=== PATIENT | female | born 1975 | race Caucasian/White ===

== ENCOUNTER 2018-06-05 10:21 | Emergency (ER) | payer MEDICAID ==
[2018-06-05] MEDS ORDERED: Sodium Chloride 0.9% 2.5 ML Syringe FLUSH PRN (10:28)
[2018-06-05] MEDS ORDERED: Sodium Chloride 0.9% 10 ML Syringe FLUSH PRN (10:28)
--- NOTE | 2018-06-05 10:45 | EDM.PDOC ---
ED HPI GENERAL MEDICAL PROBLEM - General Chief Complaint: Cardiovascular Problem Stated Complaint: UNK Time Seen by Provider: 06/05/18 10:34 - History of Present Illness INITIAL COMMENTS - FREE TEXT/NARRATIVE: HISTORY AND PHYSICAL: History of present illness: Patient's 42-year-old white female with history of chronic intermittent dizziness and presents with a concern of dizziness she does qualify this is somewhat different she has been worked up for this and there's been no definitive diagnosis given to this. She denies associated chest pain nausea vomiting fever chills Review of systems: As per history of present illness and below otherwise all systems reviewed and negative. Past medical history: As per history of present illness and as reviewed below otherwise noncontributory. Surgical history: As per history of present illness and as reviewed below otherwise noncontributory. Social history: No reported history of drug or alcohol abuse. Family history: As per history of present illness and as reviewed below otherwise noncontributory. Physical exam: HEENT: Atraumatic, normocephalic, pupils reactive, negative for conjunctival pallor or scleral icterus, mucous membranes moist, throat clear, neck supple, nontender, trachea midline. Lungs: Clear to auscultation, breath sounds equal bilaterally, chest nontender. Heart: S1S2, regular, negative for clicks, rubs, or JVD. Abdomen: Soft, nondistended, nontender. Negative for masses or hepatosplenomegaly. Negative for costovertebral tenderness. Pelvis: Stable nontender. Genitourinary: Deferred. Rectal: Deferred. Extremities: Right knee with mild tenderness to palpation grossly stable neurovascular exam unremarkable. Neuro: Awake, alert, oriented. Cranial nerves II through XII unremarkable. Motor and sensory grossly unremarkable exam limited but nonfocal Diagnostics: CBC CMP troponin PT/INR chest x-ray EKG CT brain orthostatic vital signs x-ray right knee Therapeutics: Saline 1 L bolus Impression: #1 chronic dizziness with acute exacerbation #2 history of breast cancer #3 history of colon cancer Definitive disposition and diagnosis as appropriate pending reevaluation and review of above. right knee Pain Score (Numeric/FACES): 7 heada Pain Score (Numeric/FACES): 10 - Related Data Allergies Allergy/AdvReac Type Severity Reaction Status Date / Time Iodine and Iodide Containing Allergy Airway Verified 06/05/18 10:27 Produc Tightness morphine Allergy Hives Verified 06/05/18 10:27 shrimp Allergy Airway Verified 06/05/18 10:27 Tightness sumatriptan [From Imitrex] Allergy Swelling Verified 06/05/18 10:27 Contrast Dye Allergy Airway Uncoded 06/05/18 10:27 Tightness Home Meds: Home Meds Acetaminophen 650 mg PO Q6H PRN 06/05/18 [History] Acetaminophen/oxyCODONE [Percocet 325-5 MG] 1 tab PO Q8H PRN 06/05/18 [History] Acyclovir [Zovirax 5% Oint] 1 applic TP ASDIRECTED PRN 06/05/18 [History] Amitriptyline [Elavil] 50 mg PO BEDTIME 06/05/18 [History] Biotin 1,000 mcg PO DAILY 06/05/18 [History] Bisacodyl [Dulcolax] 10 mg PO DAILY PRN 06/05/18 [History] Calcium Carbonate/Vitamin D3 [Calcium 600-Vit D3 800 Caplet] 1 tab PO BID [History] Capecitabine 2,500 mg PO BID 06/05/18 [History] Clobetasol Propionate [Temovate Cream] 1 applic TP BID 06/05/18 [History] Cyanocobalamin (Vitamin B-12) [B-12] 5,000 mcg SL DAILY 06/05/18 [History] Cyclobenzaprine [Flexeril] 10 mg PO TID PRN 06/05/18 [History] DULoxetine [Cymbalta] 60 mg PO DAILY 06/05/18 [History] Dexamethasone 8 mg PO DAILY 06/05/18 [History] Dextromethorphan HBr [Tussin Cough] 15 mg PO Q4H 06/05/18 [History] Diclofenac Sodium [Voltaren 1% Gel] 1 applic TP QID 06/05/18 [History] Docusate Sodium [Colace] 100 mg PO BID 06/05/18 [History] Exemestane 25 mg PO DAILY 06/05/18 [History] Furosemide 10 mg PO DAILY 06/05/18 [History] Gabapentin [Neurontin] 900 mg PO TID 06/05/18 [History] Lidocaine 2% [Xylocaine 2% Jelly] 1 applic TP BID PRN 06/05/18 [History] Loperamide [Imodium] 2 mg PO ASDIRECTED PRN MDD 16 mg 06/05/18 [History] Magnesium Oxide 250 mg PO BID 06/05/18 [History] Multivitamin/Iron/Folic Acid [Centrum Adults Tablet] 1 tab PO BEDTIME 06/05/18 [ History] Naratriptan HCl 2.5 mg PO ASDIRECTED PRN 06/05/18 [History] Nystatin 1 dose PO BID 06/05/18 [History] Omeprazole 20 mg PO BIDAC 06/05/18 [History] Pregabalin [Lyrica] 75 mg PO TID 06/05/18 [History] Pregabalin [Lyrica] 150 mg PO BID 06/05/18 [History] Prochlorperazine [Compazine] 10 mg PO QID PRN 06/05/18 [History] Promethazine [Phenergan] 25 mg PO Q6H PRN 06/05/18 [History] Propranolol HCl [Inderal LA] 160 mg PO BEDTIME 06/05/18 [History] Topiramate 150 mg PO ASDIRECTED PRN 06/05/18 [History] buPROPion HCl [Wellbutrin Sr] 150 mg PO BID 06/05/18 [History] Past Medical History HEENT History: Reports: Impaired Vision, Other (See Below) Other HEENT History: wears glasses, Cardiovascular History: Reports: None Respiratory History: Reports: Pneumonia, Recurrent Gastrointestinal History: Reports: GERD Genitourinary History: Reports: None DIRECT MARKETING COORDINATOR History: Reports: Musculoskeletal History: Reports: None Neurological History: Reports: Migraines Psychiatric History: Reports: None Endocrine/Metabolic History: Reports: None Hematologic History: Reports: None Immunologic History: Reports: None Oncologic (Cancer) History: Reports: Breast, Colon Dermatologic History: Reports: None - Past Surgical History Head Surgeries/Procedures: Reports: None HEENT Surgical History: Reports: Other (See Below) Other HEENT Surgeries/Procedures: esophgeal dilation Cardiovascular Surgical History: Reports: None Respiratory Surgical History: Reports: None GI Surgical History: Reports: Bariatric Procedure, Cholecystectomy, Hernia, Abdominal Female Surgical History: Reports: Section Endocrine Surgical History: Reports: None Neurological Surgical History: Reports: None Musculoskeletal Surgical History: Reports: None Oncologic Surgical History: Reports: Mastectomy, Other (See Below) Other Oncologic Surgeries/Procedures: double mastectomy, breast reconstruction Dermatological Surgical History: Reports: None Social & Family History - Family History Family Medical History: Noncontributory - Tobacco Use Smoking Status *Q: Never Smoker Second Hand Smoke Exposure: No - Caffeine Use Caffeine Use: Reports: Soda - Recreational Drug Use Recreational Drug Use: No ED ROS GENERAL - Review of Systems Review Of Systems: ROS reveals no pertinent complaints other than HPI. ED EXAM, GENERAL - Physical Exam Exam: See Below (See dictation) Course - Vital Signs Last Recorded V/S: Last Vital Signs Temp 36.0 C 06/05/18 10:23 Pulse 68 06/05/18 10:23 Resp 16 06/05/18 10:23 BP 123/79 06/05/18 10:23 Pulse Ox 96 06/05/18 10:23 - Orders/Labs/Meds Orders: Active Orders 24 hr Category Date Time Status EKG Documentation Completion [RC] STAT Care 06/05/18 10:28 Active Orthostatic Vital Signs [RC] ASDIRECTED Care 06/05/18 10:28 Active Knee 3V Rt [CR] Stat Exams 06/05/18 12:40 Ordered Sodium Chloride 0.9% [Saline Flush] Med 06/05/18 10:28 Active 10 ml FLUSH ASDIRECTED PRN Sodium Chloride 0.9% [Saline Flush] Med 06/05/18 10:28 Active 2.5 ml FLUSH ASDIRECTED PRN Saline Lock Insert [OM.PC] Stat Oth 06/05/18 10:28 Ordered Medication Orders Sodium Chloride (Saline Flush) 10 ml FLUSH ASDIRECTED PRN PRN Reason: Keep Vein Open Sodium Chloride (Saline Flush) 2.5 ml FLUSH ASDIRECTED PRN PRN Reason: Keep Vein Open Labs: Laboratory Tests 06/05/18 06/05/18 Range/Units 10:50 10:50 WBC 4.00 (4.0-11.0) K/uL RBC 4.15 L (4.30-5.90) M/uL Hgb 11.3 L (12.0-16.0) g/dL Hct 35.8 L (36.0-46.0) % MCV 86.3 (80.0-98.0) fL MCH 27.2 (27.0-32.0) pg MCHC 31.6 (31.0-37.0) g/dL RDW Std Deviation 53.8 (28.0-62.0) fl RDW Coeff of Elliot 17 H (11.0-15.0) % Plt Count 171 (150-400) K/uL MPV 10.20 (7.40-12.00) fL Neut % (Auto) 52.1 (48.0-80.0) % Lymph % (Auto) 38.3 (16.0-40.0) % [place] % (Auto) 5.8 (0.0-15.0) % Eos % (Auto) 3.0 (0.0-7.0) % Baso % (Auto) 0.8 (0.0-1.5) % Neut # (Auto) 2.1 (1.4-5.7) K/uL Lymph # (Auto) 1.5 (0.6-2.4) K/uL [place] # (Auto) 0.2 (0.0-0.8) K/uL Eos # (Auto) 0.1 (0.0-0.7) K/uL Baso # (Auto) 0.0 (0.0-0.1) K/uL Nucleated RBC % 0.0 /100WBC Nucleated RBCs # 0 K/uL Sodium 140 (136-145) mmol/L Potassium 4.0 (3.5-5.1) mmol/L Chloride 106 (98-107) mmol/L Carbon Dioxide 25.8 (21.0-32.0) mmol/L BUN 12 (7.0-18.0) mg/dL Creatinine 0.9 (0.6-1.0) mg/dL Est Cr Clr Drug Dosing 72.53 mL/min Estimated GFR (MDRD) > 60.0 ml/min Glucose 94 (74-106) mg/dL Calcium 8.5 (8.5-10.1) mg/dL Total Bilirubin 0.4 (0.2-1.0) mg/dL AST 13 L (15-37) IU/L ALT 15 (14-63) IU/L Alkaline Phosphatase 103 (46-116) U/L Troponin I < 0.050 (0.000-0.056) ng/mL Total Protein 6.7 (6.4-8.2) g/dL Albumin 3.1 L (3.4-5.0) g/dL Globulin 3.6 (2.6-4.0) g/dL Albumin/Globulin Ratio 0.9 (0.9-1.6) Meds: Medications Generic Name Dose Route Start Last Admin Trade Name Adrielq PRN Reason Stop Dose Admin Sodium Chloride 10 ml 06/05/18 10:28 Saline Flush FLUSH ASDIRECTED PRN Keep Vein Open Sodium Chloride 2.5 ml 06/05/18 10:28 Saline Flush FLUSH ASDIRECTED PRN Keep Vein Open Departure - Departure Time of Disposition: 12:42 Disposition: Home, Self-Care 01 Condition: Good Clinical Impression: Dizziness, Knee injury, Weakness Forms: ED Department Discharge Additional Instructions: The following information is given to patients seen in the emergency department who are being discharged to home. This information is to outline your options for follow-up care. We provide all patients seen in our emergency department with a follow-up referral. The need for follow-up, as well as the timing and circumstances, are variable depending upon the specifics of your emergency department visit. If you don't have a primary care physician on staff, we will provide you with a referral. We always advise you to contact your personal physician following an emergency department visit to inform them of the circumstance of the visit and for follow-up with them and/or the need for any referrals to a consulting specialist. The emergency department will also refer you to a specialist when appropriate. This referral assures that you have the opportunity for followup care with a specialist. All of these measure are taken in an effort to provide you with optimal care, which includes your followup. Under all circumstances we always encourage you to contact your private physician who remains a resource for coordinating your care. When calling for followup care, please make the office aware that this follow-up is from your recent emergency room visit. If for any reason you are refused follow-up, please contact the [facility] emergency department at and asked to speak to the emergency department charge nurse. Follow-up primary medical doctor/neurology as discussed return as needed as discussed - My Orders Last 24 Hours: My Active Orders 06/05/18 12:40 Knee 3V Rt [CR] Stat - Assessment/Plan Last 24 Hours: My Active Orders 06/05/18 12:40 Knee 3V Rt [CR] Stat
[2018-06-05 12:05] LABS: CHLORIDE,CL 106 mmol/L (98-107); SODIUM,NA 140 mmol/L (136-145)
--- NOTE | 2018-06-05 12:25 | CT ---
EXAMINATION: Non contrast CT head. Coronal and sagittal reformats. HISTORY: Pain FINDINGS: No evidence of intra or extra axial hemorrhage, mass, midline shift, hydrocephalus or edema. No hypoattenuation changes in the major vascular territories to suggest acute infarct. No abnormal intracranial calcifications are detected. No evidence of substantial vascular calcifications. Paranasal sinuses and mastoid air cells are well aerated without substantial findings. Pituitary fossa appears unremarkable. Calvarium is intact. No evidence of skull fracture. IMPRESSION: No acute intracranial findings.
--- NOTE | 2018-06-05 12:25 | CR ---
EXAMINATION: Portable chest radiograph. HISTORY: Dizziness. FINDINGS: The trachea is midline. The cardiomediastinal silhouette is within normal limits. No pulmonary infiltrates, effusions or pneumothorax. There is a right-sided portacatheter noted. Clips project over the lower thorax bilaterally. Osseous structures appear unremarkable. IMPRESSION: No acute cardiopulmonary process.
--- NOTE | 2018-06-05 13:40 | CR ---
EXAMINATION: Right knee HISTORY: Pain COMPARISON: None TECHNIQUE: 3 views FINDINGS/IMPRESSION: There is no acute osseous abnormality, effusion, dislocation, or fracture. Bone mineralization is mildly osteopenic. Mild joint space narrowing within the medial compartment and patellofemoral compartment with early osteophyte formation.
== END 2018-06-05 15:05 | disposition home or self-care (01) ==
LOC: MW.ED 10:21
DX: R42 Dizziness and giddiness (principal); R53.1 Weakness; S89.91XA Unspecified injury of right lower leg, initial encounter; Z85.3 Personal history of malignant neoplasm of breast; Z85.038 Personal history of other malignant neoplasm of large intestine; Z88.8 Allergy status to other drugs, medicaments and biological substances; Z91.041 Radiographic dye allergy status; X58.XXXA Exposure to other specified factors, initial encounter
CPT/HCPCS: 36415; 70450; 71045; 73562; 80053; 84484; 85025; 93005; 99284; J1642

== ENCOUNTER 2018-10-25 21:31 | Emergency (ER) | payer MEDICAID ==
[2018-10-25] MEDS ORDERED: Sodium Chloride 0.9% 1,000 ML IV ONE (21:34)
[2018-10-25] MEDS ORDERED: Ondansetron 4 MG/2 ML SDV IVPUSH ONE (21:34)
--- NOTE | 2018-10-25 21:53 | EDM.PDOC ---
ED HPI GENERAL MEDICAL PROBLEM - General Chief Complaint: General Stated Complaint: AMBULANCE Time Seen by Provider: 10/25/18 21:33 Source of Information: Reports: Patient History Limitations: Reports: No Limitations - History of Present Illness INITIAL COMMENTS - FREE TEXT/NARRATIVE: HISTORY AND PHYSICAL: History of present illness: Patient is a 43-year-old female who presents to the emergency room via ambulance with complaints of weakness, "shaky", nausea and increased confusion. Patient is very vague about when these symptoms have started. Has not had any unilateral or focal weakness, slurred speech or stroke like symptoms. She states that she has been living with her daughter who has been helping take care of her. She denies any recent injury, trauma or falls. Patient denies any fever, chills, headache, change in vision, syncope or near syncope. Denies any chest pain, back pain, shortness of breath or cough. Denies any abdominal pain, vomiting, diarrhea, constipation or dysuria. Has not noted any blood in urine or stool. Patient has been eating and drinking appropriately. Past medical history of breast cancer, bilateral mastectomy with breast reconstruction. History of colon cancer. States she recently was in [facility] to have an ultrasound/follow-up to assess her teran status. Currently not receiving any form of chemotherapy or radiation treatment. Review of systems: As per history of present illness and below otherwise all systems reviewed and negative. Past medical history: As per history of present illness and as reviewed below otherwise noncontributory. Surgical history: As per history of present illness and as reviewed below otherwise noncontributory. Social history: See social history for further information Family history: As per history of present illness and as reviewed below otherwise noncontributory. Physical exam: General: Well developed and well-nourished 43-year-old female. Alert and oriented, although patient does to gather her thoughts before answering questions. HEENT: Atraumatic, normocephalic, pupils equal and reactive bilaterally, negative for conjunctival pallor or scleral icterus, mucous membranes moist, TMs normal bilaterally, throat clear, neck supple, nontender, trachea midline. No drooling or trismus noted. No meningeal signs. No hot potato voice noted. Lungs: Clear to auscultation, breath sounds equal bilaterally, chest nontender. Heart: S1S2, regular rate and rhythm without overt murmur Abdomen: Soft, nondistended, obese, nontender. Negative for masses. Negative for costovertebral tenderness. Pelvis is stable nontender. Skin: Intact, warm, dry. No lesions or rashes noted. Extremities: Atraumatic, moves all extremities per self without difficulty or deficits, negative for cords or calf pain. Neurovascular unremarkable. Neuro: Awake, alert, oriented. Cranial nerves II through XII unremarkable. Cerebellum unremarkable. Motor and sensory unremarkable throughout. Exam nonfocal. Notes: Head CT shows no evidence of acute infarction, intracranial hemorrhage, or mass- effect seen. CXR shows minimal bibasilar atelectasis with small lung volumes noted. Labs were shared with the patient. Patient states that she recently was prescribed ([place]) iron supplement as she knows that she has anemia. Filled this medication today but has not yet started it. She does have family who is at the bedside. I offered admission which she declines. She states she does feel safe and comfortable going home. I encouraged her to follow-up with a primary care provider for further evaluation and management. Vital signs remain stable. I did offer to give her prescription for Zofran, she does have this available to her at home. Declines the need for this. Supportive care measures were reviewed and discussed. Voices understanding and is agreeable to plan of care. Denies any further questions or concerns at this time. Diagnostics: CBC, CMP, UA, Lipase, Lactic, Head CT, EKG, CXR Therapeutics: IV fluids, Zofran, Bactrim DS Prescription: Bactrim DS Impression: Weakness Anemia UTI Plan: 1. Continue taking her prescribed medications as directed. Start your iron supplement that you have prescribed for your anemia. 2. Small frequent meals may help with the weakness and tremors. Make sure you are drinking plenty of fluids to prevent dehydration. 3. Take the antibiotic for the UTI as directed. 4. Follow-up with your primary care provider as we discussed. Return to the ED as needed and as discussed. Definitive disposition and diagnosis as appropriate pending reevaluation and review of above. chest area Pain Score (Numeric/FACES): 6 - Related Data Allergies Allergy/AdvReac Type Severity Reaction Status Date / Time Iodine and Iodide Containing Allergy Airway Verified 10/25/18 21:33 Produc Tightness morphine Allergy Hives Verified 10/25/18 21:33 shrimp Allergy Airway Verified 10/25/18 21:33 Tightness sumatriptan [From Imitrex] Allergy Swelling Verified 10/25/18 21:33 Contrast Dye Allergy Airway Uncoded 10/25/18 21:33 Tightness Home Meds: Home Meds Acetaminophen 650 mg PO Q6H PRN 06/05/18 [History] Acetaminophen/oxyCODONE [Percocet 325-5 MG] 1 tab PO Q8H PRN 06/05/18 [History] Acyclovir [Zovirax 5% Oint] 1 applic TP ASDIRECTED PRN 06/05/18 [History] Amitriptyline [Elavil] 50 mg PO BEDTIME 06/05/18 [History] Biotin 1,000 mcg PO DAILY 06/05/18 [History] Bisacodyl [Dulcolax] 10 mg PO DAILY PRN 06/05/18 [History] Calcium Carbonate/Vitamin D3 [Calcium 600-Vit D3 800 Caplet] 1 tab PO BID [History] Capecitabine 2,500 mg PO BID 06/05/18 [History] Clobetasol Propionate [Temovate Cream] 1 applic TP BID 06/05/18 [History] Cyanocobalamin (Vitamin B-12) [B-12] 5,000 mcg SL DAILY 06/05/18 [History] Cyclobenzaprine [Flexeril] 10 mg PO TID PRN 06/05/18 [History] DULoxetine [Cymbalta] 60 mg PO DAILY 06/05/18 [History] Dextromethorphan HBr [Tussin Cough] 15 mg PO Q4H 06/05/18 [History] Diclofenac Sodium [Voltaren 1% Gel] 1 applic TP QID 06/05/18 [History] Docusate Sodium [Colace] 100 mg PO BID 06/05/18 [History] Exemestane 25 mg PO DAILY 06/05/18 [History] Furosemide 10 mg PO DAILY 06/05/18 [History] Gabapentin [Neurontin] 900 mg PO TID 06/05/18 [History] Lidocaine 2% [Xylocaine 2% Jelly] 1 applic TP BID PRN 06/05/18 [History] Loperamide [Imodium] 2 mg PO ASDIRECTED PRN MDD 16 mg 06/05/18 [History] Magnesium Oxide 250 mg PO BID 06/05/18 [History] Multivitamin/Iron/Folic Acid [Centrum Adults Tablet] 1 tab PO BEDTIME 06/05/18 [ History] Naratriptan HCl 2.5 mg PO ASDIRECTED PRN 06/05/18 [History] Nystatin 1 dose PO BID 06/05/18 [History] Omeprazole 20 mg PO BIDAC 06/05/18 [History] Pregabalin [Lyrica] 75 mg PO TID 06/05/18 [History] Pregabalin [Lyrica] 150 mg PO BID 06/05/18 [History] Prochlorperazine [Compazine] 10 mg PO QID PRN 06/05/18 [History] Promethazine [Phenergan] 25 mg PO Q6H PRN 06/05/18 [History] Propranolol HCl [Inderal LA] 160 mg PO BEDTIME 06/05/18 [History] Topiramate 150 mg PO ASDIRECTED PRN 06/05/18 [History] buPROPion HCl [Wellbutrin Sr] 150 mg PO BID 06/05/18 [History] dexAMETHasone [Dexamethasone] 8 mg PO DAILY 06/05/18 [History] Past Medical History HEENT History: Reports: Impaired Vision, Other (See Below) Other HEENT History: wears glasses, Cardiovascular History: Reports: None Respiratory History: Reports: Pneumonia, Recurrent Gastrointestinal History: Reports: GERD Genitourinary History: Reports: None [employer] History: Reports: Musculoskeletal History: Reports: None Neurological History: Reports: Migraines Psychiatric History: Reports: None Endocrine/Metabolic History: Reports: None Hematologic History: Reports: None Immunologic History: Reports: None Oncologic (Cancer) History: Reports: Breast, Colon Dermatologic History: Reports: None - Past Surgical History Head Surgeries/Procedures: Reports: None HEENT Surgical History: Reports: Other (See Below) Other HEENT Surgeries/Procedures: esophgeal dilation Cardiovascular Surgical History: Reports: None Respiratory Surgical History: Reports: None GI Surgical History: Reports: Bariatric Procedure, Cholecystectomy, Hernia, Abdominal Female Surgical History: Reports: Section Endocrine Surgical History: Reports: None Neurological Surgical History: Reports: None Musculoskeletal Surgical History: Reports: None Oncologic Surgical History: Reports: Mastectomy, Other (See Below) Other Oncologic Surgeries/Procedures: double mastectomy, breast reconstruction Dermatological Surgical History: Reports: None Social & Family History - Family History Family Medical History: Noncontributory - Caffeine Use Caffeine Use: Reports: Soda ED ROS GENERAL - Review of Systems Review Of Systems: ROS reveals no pertinent complaints other than HPI. ED EXAM, GENERAL - Physical Exam Exam: See Below (See dictation) Course - Vital Signs Last Recorded V/S: Last Vital Signs Temp 97.8 F 10/25/18 21:33 Pulse 61 10/25/18 22:34 Resp 18 10/25/18 22:34 BP 111/74 10/25/18 22:34 Pulse Ox 94 L 10/25/18 22:34 - Orders/Labs/Meds Orders: Active Orders 24 hr Category Date Time Status EKG Documentation Completion [RC] STAT Care 10/25/18 21:35 Active CULTURE URINE [RM] Stat Lab 10/25/18 22:44 Received UA W/MICROSCOPIC [URIN] Stat Lab 10/25/18 22:44 Results Sodium Chloride 0.9% [Normal Saline] 1,000 ml Med 10/25/18 21:34 Active IV STAT Sulfamethoxazole/Trimethoprim [Septra DS] Med 10/25/18 23:48 Once 1 tab PO ONETIME ONE Medication Orders Sodium Chloride (Normal Saline) 1,000 mls @ 150 mls/hr IV STAT ONE Stop: 10/26/18 04:13 Last Admin: 10/25/18 22:29 Dose: 150 mls/hr Labs: Laboratory Tests 10/25/18 10/25/18 10/25/18 Range/Units 21:58 21:58 21:58 WBC 6.10 (4.0-11.0) K/uL RBC 4.03 L (4.30-5.90) M/uL Hgb 10.6 L (12.0-16.0) g/dL Hct 34.9 L (36.0-46.0) % MCV 86.6 (80.0-98.0) fL MCH 26.3 L (27.0-32.0) pg MCHC 30.4 L (31.0-37.0) g/dL RDW Std Deviation 52.3 (28.0-62.0) fl RDW Coeff of Elliot 16 H (11.0-15.0) % Plt Count 183 (150-400) K/uL MPV 11.10 (7.40-12.00) fL Neut % (Auto) 61.9 (48.0-80.0) % Lymph % (Auto) 25.7 (16.0-40.0) % [place] % (Auto) 9.5 (0.0-15.0) % Eos % (Auto) 2.6 (0.0-7.0) % Baso % (Auto) 0.3 (0.0-1.5) % Neut # (Auto) 3.8 (1.4-5.7) K/uL Lymph # (Auto) 1.6 (0.6-2.4) K/uL [place] # (Auto) 0.6 (0.0-0.8) K/uL Eos # (Auto) 0.2 (0.0-0.7) K/uL Baso # (Auto) 0.0 (0.0-0.1) K/uL Nucleated RBC % 0.0 /100WBC Nucleated RBCs # 0 K/uL Lactate 1.0 (0.20-2.00) mmol/L Sodium 143 (136-145) mmol/L Potassium 4.1 (3.5-5.1) mmol/L Chloride 108 H (98-107) mmol/L Carbon Dioxide 27.6 (21.0-32.0) mmol/L BUN 15 (7.0-18.0) mg/dL Creatinine 0.9 (0.6-1.0) mg/dL Est Cr Clr Drug Dosing 71.78 mL/min Estimated GFR (MDRD) > 60.0 ml/min Glucose 94 (74-106) mg/dL Calcium 8.2 L (8.5-10.1) mg/dL Total Bilirubin 0.5 (0.2-1.0) mg/dL AST 18 (15-37) IU/L ALT 28 (14-63) IU/L Alkaline Phosphatase 121 H (46-116) U/L Total Protein 6.9 (6.4-8.2) g/dL Albumin 3.3 L (3.4-5.0) g/dL Globulin 3.6 (2.6-4.0) g/dL Albumin/Globulin Ratio 0.9 (0.9-1.6) Urine Color Urine Appearance Urine pH (5.0-8.0) Ur Specific [place] (1.001-1.035) Urine Protein (NEGATIVE) mg/dL Urine Glucose (UA) (NEGATIVE) mg/dL Urine Ketones (NEGATIVE) mg/dL Urine Occult Blood (NEGATIVE) Urine Nitrite (NEGATIVE) Urine Bilirubin (NEGATIVE) Urine Urobilinogen (<2.0) EU/dL Ur Leukocyte Esterase (NEGATIVE) 10/25/18 Range/Units 22:44 WBC (4.0-11.0) K/uL RBC (4.30-5.90) M/uL Hgb (12.0-16.0) g/dL Hct (36.0-46.0) % MCV (80.0-98.0) fL MCH (27.0-32.0) pg MCHC (31.0-37.0) g/dL RDW Std Deviation (28.0-62.0) fl RDW Coeff of Elliot (11.0-15.0) % Plt Count (150-400) K/uL MPV (7.40-12.00) fL Neut % (Auto) (48.0-80.0) % Lymph % (Auto) (16.0-40.0) % [place] % (Auto) (0.0-15.0) % Eos % (Auto) (0.0-7.0) % Baso % (Auto) (0.0-1.5) % Neut # (Auto) (1.4-5.7) K/uL Lymph # (Auto) (0.6-2.4) K/uL [place] # (Auto) (0.0-0.8) K/uL Eos # (Auto) (0.0-0.7) K/uL Baso # (Auto) (0.0-0.1) K/uL Nucleated RBC % /100WBC Nucleated RBCs # K/uL Lactate (0.20-2.00) mmol/L Sodium (136-145) mmol/L Potassium (3.5-5.1) mmol/L Chloride (98-107) mmol/L Carbon Dioxide (21.0-32.0) mmol/L BUN (7.0-18.0) mg/dL Creatinine (0.6-1.0) mg/dL Est Cr Clr Drug Dosing mL/min Estimated GFR (MDRD) ml/min Glucose (74-106) mg/dL Calcium (8.5-10.1) mg/dL Total Bilirubin (0.2-1.0) mg/dL AST (15-37) IU/L ALT (14-63) IU/L Alkaline Phosphatase (46-116) U/L Total Protein (6.4-8.2) g/dL Albumin (3.4-5.0) g/dL Globulin (2.6-4.0) g/dL Albumin/Globulin Ratio (0.9-1.6) Urine Color YELLOW Urine Appearance CLEAR Urine pH 6.0 (5.0-8.0) Ur Specific [place] 1.025 (1.001-1.035) Urine Protein NEGATIVE (NEGATIVE) mg/dL Urine Glucose (UA) NEGATIVE (NEGATIVE) mg/dL Urine Ketones NEGATIVE (NEGATIVE) mg/dL Urine Occult Blood NEGATIVE (NEGATIVE) Urine Nitrite POSITIVE H (NEGATIVE) Urine Bilirubin SMALL H (NEGATIVE) Urine Urobilinogen 0.2 (<2.0) EU/dL Ur Leukocyte Esterase SMALL H (NEGATIVE) Meds: Medications Generic Name Dose Route Start Last Admin Trade Name Freq PRN Reason Stop Dose Admin Sodium Chloride 1,000 mls @ 150 mls/hr 10/25/18 21:34 10/25/18 22:29 Normal Saline IV 10/26/18 04:13 150 mls/hr STAT ONE Administration Discontinued Medications Generic Name Dose Route Start Last Admin Trade Name Freq PRN Reason Stop Dose Admin Ondansetron HCl 4 mg 10/25/18 21:34 10/25/18 22:29 Zofran IVPUSH 10/25/18 21:35 4 mg ONETIME ONE Administration Departure - Departure Time of Disposition: 23:50 Disposition: Home, Self-Care 01 Clinical Impression: Weakness Anemia, unspecified Qualifiers: Anemia type: unspecified type Qualified Code(s): D64.9 - Anemia, unspecified UTI (urinary tract infection) Qualifiers: Urinary tract infection type: acute cystitis Hematuria presence: without hematuria Qualified Code(s): N30.00 - Acute cystitis without hematuria - Discharge Information Instructions: Anemia, Weakness, [id number], Urinary Tract Infection, Adult, Zyct-up-Ccle Referrals: PCP,None [Primary Care Provider] - Forms: ED Department Discharge Additional Instructions: The following information is given to patients seen in the emergency department who are being discharged to home. This information is to outline your options for follow-up care. We provide all patients seen in our emergency department with a follow-up referral. The need for follow-up, as well as the timing and circumstances, are variable depending upon the specifics of your emergency department visit. If you don't have a primary care physician on staff, we will provide you with a referral. We always advise you to contact your personal physician following an emergency department visit to inform them of the circumstance of the visit and for follow-up with them and/or the need for any referrals to a consulting specialist. The emergency department will also refer you to a specialist when appropriate. This referral assures that you have the opportunity for follow-up care with a specialist. All of these measure are taken in an effort to provide you with optimal care, which includes your follow-up. Under all circumstances we always encourage you to contact your private physician who remains a resource for coordinating your care. When calling for follow-up care, please make the office aware that this follow-up is from your recent emergency room visit. If for any reason you are refused follow-up, please contact the [facility] Emergency Department at and asked to speak to the emergency department charge nurse. [facility] [address] [place] [id number] [address] [address] 1. Continue taking her prescribed medications as directed. Start your iron supplement that you have prescribed for your anemia. 2. Small frequent meals may help with the weakness and tremors. Make sure you are drinking plenty of fluids to prevent dehydration. 3. Take the antibiotic for the UTI as directed. 4. Follow-up with your primary care provider as we discussed. Return to the ED as needed and as discussed. - My Orders Last 24 Hours: My Active Orders 10/25/18 21:34 Sodium Chloride 0.9% [Normal Saline] 1,000 ml IV STAT 10/25/18 21:35 EKG Documentation Completion [RC] STAT 10/25/18 22:44 CULTURE URINE [RM] Stat UA W/MICROSCOPIC [URIN] Stat 10/25/18 23:48 Sulfamethoxazole/Trimethoprim [Septra DS] 1 tab PO ONETIME ONE - Assessment/Plan Last 24 Hours: My Active Orders 10/25/18 21:34 Sodium Chloride 0.9% [Normal Saline] 1,000 ml IV STAT 10/25/18 21:35 EKG Documentation Completion [RC] STAT 10/25/18 22:44 CULTURE URINE [RM] Stat UA W/MICROSCOPIC [URIN] Stat 10/25/18 23:48 Sulfamethoxazole/Trimethoprim [Septra DS] 1 tab PO ONETIME ONE
[2018-10-25 22:32] LABS: CHLORIDE,CL 108 mmol/L (98-107); SODIUM,NA 143 mmol/L (136-145)
--- NOTE | 2018-10-25 23:14 | CR ---
INDICATION: Chest pain, shortness of breath TECHNIQUE: Chest radiograph 1 view COMPARISON: None FINDINGS: Severe degradation of image quality noted due to body habitus. Mediastinum: The mediastinum is normal in appearance. The heart silhouette is normal in size and morphology. Right Port-A-Cath present with tip in SVC. Lung: Minimal bibasilar atelectasis with small lung volumes noted. No sign of pleural effusion seen. No pneumothorax is identified. the lower lung zones bilaterally. IMPRESSION: 1. Minimal bibasilar atelectasis with small lung volumes noted. Dictated by Amadeo Potts MD @ 10/25/2018 11:13:15 PM Dictated by: Amadeo Potts MD @ 10/25/2018 23:13:18 (Electronically Signed)
--- NOTE | 2018-10-25 23:23 | CT ---
INDICATION: altered mental status TECHNIQUE: CT Head without i.v. contrast. COMPARISON: None FINDINGS: CSF space: The ventricles are normal for age. Brain: No evidence of mass, acute infarction or hemorrhage is seen. No mass-effect or midline shift is seen. The brain parenchyma is otherwise normal in appearance with preservation of the agosto-white matter junction. Calvarium: The visualized paranasal sinuses are well aerated. The mastoid air cells are clear. The visualized orbits are grossly unremarkable. The calvarium is unremarkable in appearance with no fractures identified. IMPRESSION: 1. No evidence of acute infarction, intracranial hemorrhage, or mass-effect seen. Please note that all CT scans at this facility use dose modulation, iterative reconstruction, and/or weight-based dosing when appropriate to reduce radiation dose to as low as reasonably achievable. Dictated by: Amadeo Potts MD @ 10/25/2018 23:22:42 (Electronically Signed)
[2018-10-25] MEDS ORDERED: Sulfamethoxazole/Trimethoprim 800-160 MG Tab PO ONE (23:48)
== END 2018-10-26 00:15 | disposition home or self-care (01) ==
LOC: MW.ED 21:31
DX: N30.00 Acute cystitis without hematuria (principal); D64.9 Anemia, unspecified; R53.1 Weakness; K21.9 Gastro-esophageal reflux disease without esophagitis; Z88.8 Allergy status to other drugs, medicaments and biological substances; Z91.013 Allergy to seafood; Z79.899 Other long term (current) drug therapy
CPT/HCPCS: 36415; 70450; 71045; 80053; 81001; 83605; 85025; 87086; 87088; 87186; 93005; 96361; 96374; 99285; A9270; J1642; J2405; J7040